=== PATIENT | female | born 1950 | race Caucasian/White ===

== ENCOUNTER 2018-11-27 09:39 | Emergency (ER) | payer MEDICARE ==
[~2018-11-27] VITALS: Ht 165.1 cm; Wt 69.0 kg
--- NOTE | 2018-11-27 10:14 | NUR ---
THIS IS A 68 YO FEMALE WHO PRESENTS TO THE ER C/O OF A RIGHT HUMERUS FRX DX'D AT . PT DENIES ANY NUMBNESS/TINGLING IN FINGERS/ARM. PULSES 2+ BILATERALLY. PT ABLE TO MOVE ARM WITH LIMITED MOBILITY D/T PAIN. PT AO X 4. SKIN COOL, PINK AND DRY. RESP EVEN AND EQAUL. NAD NOTED. PT'S LEFT EYE IS RED SECONDARY TO A SX PT HAD ON IT YESTERDAY FOR GLAUCOMA. PER PT SHE WENT TO HER F/U APPT FOR THIS THIS AM. PT AWARE WE ARE WAITING FOR ERMD EVAL. CALL LIGHT WITHIN REACH. WILL CONT TO MONITOR PT.
[2018-11-27] MEDS ORDERED: BRIM5DRO3 EACHEYE (10:25)
[2018-11-27] MEDS ORDERED: ROSU20TA PO (10:25)
[2018-11-27] MEDS ORDERED: DICL75TA3 PO (10:25)
[2018-11-27] MEDS ORDERED: NETA2.5D EACHEYE (10:25)
[2018-11-27] MEDS ORDERED: BETA10DR EACHEYE (10:25)
[2018-11-27] MEDS ORDERED: LATA2.5D3 RIGHTEYE (10:25)
[2018-11-27] MEDS ORDERED: METO50TA82 PO (10:25)
[2018-11-27] MEDS ORDERED: DORZ10DR27 EACHEYE (10:25)
[2018-11-27] MEDS ORDERED: VENL75CA PO (10:25)
[2018-11-27] MEDS ORDERED: AMLO-150 PO (10:25)
[2018-11-27] MEDS ORDERED: ACET500C PO (10:25)
[2018-11-27] MEDS ORDERED: LEVO50TA5 PO (10:25)
[2018-11-27] MEDS ORDERED: LATA5DRO LEFTEYE (10:25)
[2018-11-27] MEDS ORDERED: OXYcodone/APAP 10/325MG TABLET ONE (10:26)
[2018-11-27] MEDS ORDERED: OXYcodone/APAP 10/325MG TABLET PO ONE (10:30)
[2018-11-27 11:33] VITALS: BP 95/83
== END 2018-11-27 11:38 | disposition home or self-care (01) ==
LOC: ED 10:50
DX: S42.211A Unspecified displaced fracture of surgical neck of right humerus, initial encounter for closed fracture (principal); E03.9 Hypothyroidism, unspecified; E78.00 Pure hypercholesterolemia, unspecified; I10 Essential (primary) hypertension; Z87.891 Personal history of nicotine dependence; W18.30XA Fall on same level, unspecified, initial encounter; Y93.89 Activity, other specified; Y92.009 Unspecified place in unspecified non-institutional (private) residence as the place of occurrence of the external cause; Y99.8 Other external cause status
CPT/HCPCS: 29105; 99283